=== PATIENT | male | born 1985 | race Caucasian/White ===

== ENCOUNTER 2017-12-23 11:28 | Emergency (ER) | payer OTHER ==
[~2017-12-23] VITALS: Ht 180.3 cm; Wt 88.0 kg
[~2017-12-23 11:28] MED LIST: NAPROSYN500 M1 PO; ROBAXIN-750750 M1 PO; TYLENOL WITH C1 EACH PO
--- NOTE | 2017-12-23 13:10 | ED SYNCOPE COMPLAINT ---
History of Present Illness General Chief Complaint: Syncope and Near-Syncope Stated Complaint: NEAR SYNCOPE X 3 MONTHS Source: patient Exam Limitations: no limitations Vital Signs & Intake/Output Vital Signs & Intake/Output Vital Signs Date Time Temp Pulse Resp B/P B/P Pulse O2 O2 Flow FiO2 Mean Ox Delivery Rate 12/23 1143 97.1 99 20 150/88 98 Room Air Allergies Coded Allergies: NO KNOWN ALLERGIES (01/06/12) Reconcile Medications No Known Home Medications Triage Note: PT TO ED C/O HOT AND COLD SWEATS WITH NEAR SYNCOPE X A FEW MONTHS. HAPPENED ABOUT 10 TIMES PER PT. LAST HAPPENED THIS AM. C/O PALPIATIONS AT TIMES. DENIES C/P OR PALPITATIONS AT THIS TIME. Triage Nurses Notes Reviewed? yes Timing: recent history Loss of Consciousness: no loss of consciousness HPI: Patient is a 32-year-old male with an unremarkable past medical history since emergency with concerns of a 2-3 month history of intermittent paroxysmal symptoms of lightheaded, presyncope episodes with associated symptoms of palpitations and flushing sensation and cold sweats. Patient again denies any pattern to the onset Patient denies any illicit drug use denies any significant alcohol use does smoke tobacco Patient's last episode occurred today where symptoms usually last APPROXIMATELY 5 minutes and completely resolved, Patient currently is asymptomatic Past History Travel History Traveled to [place] past 21 day No Medical History Any Pertinent Medical History? none Surgical History Surgical History: none Psychosocial History What is your primary language Tajik Tobacco Use: Current Daily Use Daily Tobacco Use Amount/Type: => 5 Cigarettes daily ETOH Use: denies use Illicit Drug Use: denies illicit drug use Family History Hx Contributory? No Review of Systems Review of Systems Constitutional: Reports: see HPI, chills. EENTM: Reports: no symptoms. Respiratory: Reports: see HPI. Cardiovascular: Reports: see HPI, palpitations. GI: Reports: no symptoms. Genitourinary: Reports: no symptoms. Musculoskeletal: Reports: no symptoms. Skin: Reports: no symptoms. Neurological/Psychological: Reports: no symptoms. All Other Systems: Reviewed and Negative Physical Exam Physical Exam General Appearance: no apparent distress, alert, comfortable Head: atraumatic Eyes: Bilateral: normal appearance, PERRL, EOMI. Ears, Nose, Throat: normal pharynx, normal ENT inspection Neck: normal inspection, full range of motion Respiratory: normal breath sounds, chest non-tender Cardiovascular: regular rate/rhythm Gastrointestinal: normal bowel sounds, soft, non-tender Extremities: normal inspection Cranial Nerves: normal hearing, normal speech, PERRL Skin: intact, normal color, warm/dry Core Measures ACS in differential dx? No CVA/TIA Diagnosis: No Sepsis Present: No Sepsis Focused Exam Completed? No Progress Differential Diagnosis: AMI, aortic dissection, aortic valve, hyperventilation, orthostatic syncope, other valvular disease, pacemaker malfunction, pericardial tamponade, pulmonary embolus, seizure, sick sinus syndrome, subarachnoid hem., TIA/CVA, vasodepressor syncope, ventricular tach/fib Plan of Care: Orders Procedure Date/time Status THYROID STIMULATING HORMONE 12/23 114 Complete TROPONIN LEVEL 12/23 114 Complete FREE T4 12/23 114 Complete COMPREHENSIVE METABOLIC PANEL 12/23 1147 Complete CBC WITHOUT DIFFERENTIAL 12/23 114 Complete EKG 12/23 1145 Active Laboratory Tests 12/23/17 1307: RBC 4.80, MCV 94.8 H, MCH 31.9 H, MCHC 33.6, RDW 12.3, MPV 8.1, Gran % 69.5, Lymphocytes % 18.4 L, Monocytes % 10.8 H, Eosinophils % 0.9, Basophils % 0.4, Absolute Granulocytes 5.1, Absolute Lymphocytes 1.4, Absolute Monocytes 0.8 H, Absolute Eosinophils 0.1, Absolute Basophils 0 12/23/17 1202: Anion Gap 11, Estimated GFR > 60, BUN/Creatinine Ratio 12.7, Glucose 88, Calcium 10.0, Total Bilirubin 0.5, AST 18, ALT 26, Alkaline Phosphatase 60, Troponin I < 0.01, Total Protein 7.2, Albumin 4.5, Globulin 2.7, Albumin/Globulin Ratio 1.7, TSH 1.450, Free T4 0.97 Patient on initial examination was in no apparent distress resting completely at bedside has unremarkable EKG and initial blood work was resulted and which I reviewed EKG and blood work with patient no acute findings. Patient was strongly advised to establish primary care doctor and cardiology if symptoms still continue. Upon discharge patient looks well no apparent distress and will comply with discharge instructions and had no questions Initial ED EKG: normal p-waves, normal QRS complex, normal sinus rhythm, 77 BPM, NSR Prior EKG: unchanged Departure Departure Disposition: HOME OR SELF CARE Condition: Stable Clinical Impression Primary Impression: Palpitation Secondary Impressions: Pre-syncope Referrals: Patient Has No Primary Care Dr (PCP/Family) Alyse HUANG PHD,Chris Pro Additional Instructions: discussed IF symptoms worsen or if YOU develop a new concerning symptom return to emergency room, YOU will receive a phone call from [facility] to establish a doctor, please go to THIS appointment and if symptoms still persist next week please follow-up with curriculum advisory teacher Dr. Cullen. Departure Forms: Customer Survey General Discharge Information Prescriptions: Current Visit Scripts No Known Home Medications
[2017-12-23 13:13] LABS: ABSOLUTE BASOPHIL COUNT 0 /CUMM (0.0-0.2); ABSOLUTE EOSINOPHIL COUNT 0.1 /CUMM (0.0-0.7); ABSOLUTE GRANULOCYTE CT 5.1 /CUMM (1.4-6.5); ABSOLUTE LYMPH COUNT 1.4 /CUMM (1.2-3.4); ABSOLUTE MONOCYTE COUNT 0.8 /CUMM (0.10-0.60); BASOPHIL % 0.4 % (0.0-2.0); EOSINOPHIL % 0.9 % (0-5); GRANULOCYTE % 69.5 % (42.2-75.2); HEMATOCRIT 45.5 % (42-52); MEAN CORPUSCULAR HGB 31.9 PG (27.0-31.0); MEAN CORPUSCULAR HGB CONC 33.6 G/DL (33.0-37.0); MEAN CORPUSCULAR VOLUME 94.8 FL (80.0-94.0); MEAN PLATELET VOLUME 8.1 FL (7.4-10.4); PLATELET COUNT 214 /CUMM (130-400); RBC DISTRIBUTION WIDTH 12.3 % (11.5-14.5); WHITE BLOOD CELL COUNT 7.4 /CUMM (4.8-10.8)
[2017-12-23 13:52] VITALS: BP 148/87
== END 2017-12-23 13:53 ==
LOC: ERH 11:28
PROVIDERS: Physician Assistant
DX: R00.2 Palpitations (principal); R55 Syncope and collapse
CPT/HCPCS: 93005; 93010